=== PATIENT | female | born 2005 | race Caucasian/White ===

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

== ENCOUNTER 2023-05-25 08:49 | Emergency (ER) | payer OTHER ==
[~2023-05-25] VITALS: Ht 152.4 cm; Wt 49.9 kg
[2023-05-25 10:18] LABS: BASO % 0.3 % (0.0-1.0); EOS % 0.2 % (1.0-4.0); HEMATOCRIT 41.5 % (37.0-47.0); LYMPH # 1.4 10*3/uL (1.3-4.4); LYMPH % 14.6 % (27.0-41.0); MEAN CELL VOLUME 94.5 fl (81.0-99.0); MEAN CORPUSCULAR HGB 32.8 pg (27.0-31.0); MEAN CORPUSCULAR HGB CONC 34.7 g/dl (33.0-37.0); MEAN PLATELET VOLUME 8.8 fl (9.6-12.3); MONO # 1.1 10*3/uL (0.1-1.0); MONO % 11.8 % (3.0-9.0); NEUT % 72.9 % (47.0-73.0); PLATELET COUNT AUTOMATED 230 10*3/uL (130-400); RED BLOOD COUNT 4.39 10*6/uL (4.10-5.10); RED CELL DISTRI WIDTH 11.9 % (0-14.5); WHITE BLOOD COUNT 9.6 10*3/uL (4.8-10.8)
[2023-05-25 10:26] LABS: BILIRUBIN 1+ (Negative); BLOOD Negative (Negative); CLARITY Cloudy (Clear); COLOR Dark Yellow (Yellow); GLUCOSE Negative (Negative); KETONE 2+ (Negative); LEUKO ESTERASE 2+ (Negative); NITRITE Negative (Negative); SPECIFIC GRAVITY >= 1.030 (1.001-1.030)
[2023-05-25 10:35] LABS: BACTERIA 2+; MUCOUS TRACE
[2023-05-25 10:36] LABS: WBC 31-40 wbc/hpf (0-5)
[2023-05-25] MEDS ORDERED: VIBRAMYCIN100 MG PO (13:09)
[2023-05-25] MEDS ORDERED: METRONIDAZOLE500 M1 PO (13:09)
== END 2023-05-25 13:34 | disposition home or self-care (01) ==
LOC: ED 08:49
PROVIDERS: Family Medicine
DX: R10.9 Unspecified abdominal pain (principal); N89.8 Other specified noninflammatory disorders of vagina; J45.909 Unspecified asthma, uncomplicated; Z88.8 Allergy status to other drugs, medicaments and biological substances; F17.210 Nicotine dependence, cigarettes, uncomplicated

== ENCOUNTER → 2023-12-01 | Outpatient (CLI) | payer OTHER ==
[~2023-12-01] MED LIST changes: +METRONIDAZOLE500 M1 PO; +VIBRAMYCIN100 MG PO
== END | disposition home or self-care (01) ==
LOC: US 01:35
PROVIDERS: ATTEND Nurse Practitioner Women's Health
DX: Z34.91 Encounter for supervision of normal pregnancy, unspecified, first trimester (principal); Z3A.01 Less than 8 weeks gestation of pregnancy

== ENCOUNTER → 2023-12-12 | Outpatient (CLI) | payer OTHER | END | disposition home or self-care (01) | LOC: US 14:25 | PROVIDERS: ATTEND Nurse Practitioner Women's Health | DX: Z32.01 Encounter for pregnancy test, result positive (principal); N88.8 Other specified noninflammatory disorders of cervix uteri ==

== ENCOUNTER → 2024-01-18 | Outpatient (CLI) | payer OTHER ==
[2024-01-18 16:28] LABS: BASO # 0.1 10*3/uL (0.0-0.1); BASO % 0.6 % (0.0-1.0); EOS # 0.1 10*3/uL (0.0-0.4); EOS % 0.9 % (1.0-4.0); HEMATOCRIT 42.5 % (37.0-47.0); LYMPH # 1.9 10*3/uL (1.3-4.4); LYMPH % 19.3 % (27.0-41.0); MEAN CELL VOLUME 93.2 fl (81.0-99.0); MEAN CORPUSCULAR HGB CONC 34.4 g/dl (33.0-37.0); MONO # 0.6 10*3/uL (0.1-1.0); MONO % 5.8 % (3.0-9.0); NEUT # 7.1 10*3/uL (2.3-7.9); NEUT % 73.1 % (47.0-73.0); PLATELET COUNT AUTOMATED 275 10*3/uL (130-400); RED BLOOD COUNT 4.56 10*6/uL (4.10-5.10); RED CELL DISTRI WIDTH 12.7 % (0-14.5); WHITE BLOOD COUNT 9.7 10*3/uL (4.8-10.8)
[2024-01-18 16:36] LABS: BILIRUBIN Negative (Negative); BLOOD Negative (Negative); CLARITY Cloudy (Clear); COLOR Yellow (Yellow); GLUCOSE Negative (Negative); KETONE 1+ (Negative); LEUKO ESTERASE 3+ (Negative); NITRITE Negative (Negative)
[2024-01-18 16:44] LABS: URINE CREATININE RANDOM 177.22 mg/dL
[2024-01-18 16:50] LABS: BACTERIA 2+; WBC 41-50 wbc/hpf (0-5); YEAST 1+
[2024-01-18 17:02] LABS: VITAMIN D, 25-HYDROXY 51.9 ng/mL (30-100)
[2024-01-18 17:03] LABS: ALKALINE PHOSPHATASE 79 U/L (46-116); BUN 6 mg/dl (9-23); CHLORIDE 106 mmol/L (98-107); FREE T4 1.22 ng/dl (0.89-1.76); LDH 147 U/L (120-246); POTASSIUM 3.6 mmol/L (3.4-5.1); SGPT/ALT < 7 U/L (5-49); TOTAL PROTEIN 6.7 gm/dL (6.0-8.0); URIC ACID 3.6 mg/dL (3.1-7.8)
[2024-01-19 11:08] LABS: THYROID PEROXIDASE (TPO) AB 14 IU/mL (0-34)
[2024-01-19 15:08] LABS: THYROGLOBULIN ANTIBODY <1.0 IU/mL (0.0-0.9)
[2024-01-21 14:06] LABS: THYROID STIM IMMUNOGLOBULIN <0.10 IU/L (0.00-0.55)
[2024-01-21 15:06] LABS: THYROTROPIN RECEPTOR AB <1.10 IU/L (0.00-1.75)
== END | disposition home or self-care (01) ==
LOC: LAB 16:03
PROVIDERS: ATTEND Obstetrics & Gynecology
DX: O99.341 Other mental disorders complicating pregnancy, first trimester (principal); O09.891 Supervision of other high risk pregnancies, first trimester; O26.11 Low weight gain in pregnancy, first trimester; G40.909 Epilepsy, unspecified, not intractable, without status epilepticus; F32.A Depression, unspecified; F41.9 Anxiety disorder, unspecified; Z28.39 Other underimmunization status; J45.20 Mild intermittent asthma, uncomplicated; Z3A.11 11 weeks gestation of pregnancy; Z86.69 Personal history of other diseases of the nervous system and sense organs; Z83.49 Family history of other endocrine, nutritional and metabolic diseases

== ENCOUNTER → 2024-03-19 | Outpatient (CLI) | payer OTHER ==
[2024-03-19 13:26] LABS: BASO # 0.1 10*3/uL (0.0-0.1); BASO % 0.6 % (0.0-1.0); EOS # 0.1 10*3/uL (0.0-0.4); EOS % 0.5 % (1.0-4.0); HEMATOCRIT 39.3 % (37.0-47.0); LYMPH % 17.9 % (27.0-41.0); MEAN CELL VOLUME 95.4 fl (81.0-99.0); MEAN CORPUSCULAR HGB CONC 34.6 g/dl (33.0-37.0); MEAN PLATELET VOLUME 9.1 fl (9.6-12.3); MONO # 0.7 10*3/uL (0.1-1.0); MONO % 6.5 % (3.0-9.0); NEUT # 8.1 10*3/uL (2.3-7.9); NEUT % 73.9 % (47.0-73.0); PLATELET COUNT AUTOMATED 275 10*3/uL (130-400); RED BLOOD COUNT 4.12 10*6/uL (4.10-5.10); RED CELL DISTRI WIDTH 13.4 % (0-14.5); WHITE BLOOD COUNT 10.9 10*3/uL (4.8-10.8)
[2024-03-19 13:29] LABS: BILIRUBIN Negative (Negative); BLOOD Negative (Negative); CLARITY Cloudy (Clear); COLOR Yellow (Yellow); GLUCOSE Negative (Negative); KETONE Trace (Negative); LEUKO ESTERASE 3+ (Negative); NITRITE Negative (Negative); SPECIFIC GRAVITY 1.025 (1.001-1.030)
[2024-03-19 13:48] LABS: ALKALINE PHOSPHATASE 90 U/L (46-116); BACTERIA 1+; BUN 7 mg/dl (9-23); CHLORIDE 103 mmol/L (98-107); EPITHELIAL CELLS 16-20; FREE T4 1.09 ng/dl (0.89-1.76); MUCOUS 1+; POTASSIUM 3.4 mmol/L (3.4-5.1); SGPT/ALT 8 U/L (5-49); TOTAL PROTEIN 6.4 gm/dL (6.0-8.0); WBC TNTC wbc/hpf (0-5)
[2024-03-19 14:11] LABS: URINE CREATININE RANDOM 204.61 mg/dL
[2024-03-19 14:19] LABS: VITAMIN D, 25-HYDROXY 55.1 ng/mL (30-100)
== END | disposition home or self-care (01) ==
LOC: LAB 12:51
PROVIDERS: ATTEND Obstetrics & Gynecology
DX: O09.891 Supervision of other high risk pregnancies, first trimester (principal); O99.340 Other mental disorders complicating pregnancy, unspecified trimester; O26.11 Low weight gain in pregnancy, first trimester; F41.9 Anxiety disorder, unspecified; G40.909 Epilepsy, unspecified, not intractable, without status epilepticus; R79.89 Other specified abnormal findings of blood chemistry; R79.0 Abnormal level of blood mineral; J45.40 Moderate persistent asthma, uncomplicated; F32.A Depression, unspecified; Z83.49 Family history of other endocrine, nutritional and metabolic diseases